=== PATIENT | female | born 1980 | race Caucasian/White ===

== ENCOUNTER → 2018-05-02 | Outpatient (CLI) | payer OTHER ==
[~2018-05-02] MED LIST: IBUPROFEN 400400 M1; LANOLIN56 GM; NORCO 5-325 TA1 EACH; NORCO 5-325 TA1 EACH PO; PRENATAL MULTI1 EAC2; PRENATAL PO
== END ==
LOC: RAD 12:42
DX: Z12.31 Encounter for screening mammogram for malignant neoplasm of breast (principal)

== ENCOUNTER → 2020-08-24 | Outpatient (CLI) | payer OTHER | LOC: BC 08:51 | PROVIDERS: ATTEND Neuromusculoskeletal Medicine & OMM | DX: Z12.31 Encounter for screening mammogram for malignant neoplasm of breast (principal); N64.89 Other specified disorders of breast ==